=== PATIENT | female | born 2000 | race Caucasian/White ===

== ENCOUNTER 2018-07-18 15:55 | Emergency (ER) | payer BC ==
[2018-07-18 16:33] VITALS: BP 124/67
[2018-07-18] MEDS ORDERED: Ibuprofen TAB* 400 MG PO ONE (17:01)
--- NOTE | 2018-07-18 17:01 | UC ---
Hand/Wrist HPI - HPI Summary HPI Summary: Pt c/o left thumb swelling, pain and bruising. Pt was under the influence of ETOH last evening and remembers slipping on stairs and falling. Pt denies LOC and is unsure of mechanism of injury . Woke this morning with base of left thumb swollen, tender and bruised. - History Of Current Complaint Chief Complaint: UCLowerExtremity Stated Complaint: LEFT THUMB CONCERN Time Seen by Provider: 07/18/18 16:57 Hx Obtained From: Patient Hx Last Menstrual Period: 07/14/18 ?: No Onset/Duration: Gradual Onset, Lasting Hours Severity Initially: Mild Severity Currently: Severe Pain Intensity: 9 Character Of Pain: Dull, Aching, Stiffness Aggravating Factor(s): Movement Alleviating Factor(s): Rest Associated Signs And Symptoms: Positive: Swelling, Bruising Related History: Dominant Hand Right - Risk Factors Compartment Syndrome Risk Factors: Pain - Allergies/Home Medications Allergies/Adverse Reactions: Allergies Allergy/AdvReac Type Severity Reaction Status Date / Time azithromycin Allergy Hives Verified 07/18/18 16:33 Home Medications: Home Medications Norgestimate-Ethinyl Estradiol [Curry-Linyah 28 Tablet] 1 each PO DAILY 07/18/18 [History Confirmed 07/18/18] PMH/Surg Hx/FS Hx/Imm Hx Previously Healthy: Yes - Surgical History Surgical History: Yes Surgery Procedure, Year, and Place: Adnoids age 2. tubes - Family History Known Family History: Positive: Cardiac Disease - Social History Occupation: Student Lives: With Family Alcohol Use: Weekly Substance Use Type: None Smoking Status (MU): Never Smoked Tobacco Have You Smoked in the Last Year: No - Immunization History Vaccination Up to Date: Yes Review of Systems All Other Systems Reviewed And Are Negative: Yes Constitutional: Positive: Negative Skin: Positive: Bruising - base of left thumb Eyes: Positive: Negative ENT: Positive: Negative Respiratory: Positive: Negative Cardiovascular: Positive: Negative Gastrointestinal: Positive: Negative Genitourinary: Positive: Negative Motor: Positive: Negative - base of left thumb, Decreased ROM Neurovascular: Positive: Negative Musculoskeletal: Positive: Arthralgia, Decreased ROM, Edema, Myalgia Neurological: Positive: Negative Psychological: Positive: Negative Is Patient Immunocompromised?: No Physical Exam Triage Information Reviewed: Yes Appearance: Well-Appearing Vital Signs: Initial Vital Signs Temp 98.0 F 07/18/18 16:29 Pulse 86 07/18/18 16:29 Resp 15 07/18/18 16:29 BP 124/67 07/18/18 16:29 Pulse Ox 99 07/18/18 16:29 Vital Signs Reviewed: Yes Eye Exam: Normal ENT Exam: Normal Dental Exam: Normal Neck exam: Normal Respiratory: Positive: No respiratory distress Musculoskeletal: Positive: ROM Limited @ - base of left thumb, Edema @ - base of left thumb Neurological Exam: Normal Psychological Exam: Normal Skin Exam: Other - bruising at base of left thumb Diagnostics - Radiology No standard instances Radiology Interpretation Completed By: Radiologist - IMPRESSION: No acute fracture or dislocation. Hand/Wrist Course/Dx - Differential Dx/Diagnosis Differential Diagnosis/HQI/PQRI: Contusion, Sprain, Strain Provider Diagnosis: Strain of left thumb Discharge - Sign-Out/Discharge Documenting (check all that apply): Patient Departure All imaging exams completed and their final reports reviewed: No Studies - Discharge Plan Condition: Stable Disposition: HOME Patient Education Materials: Finger Sprain (ED), Ice Pack Application (ED), Safe Use of NSAIDs (ED) Referrals: Pasha Giron MD [Medical Doctor] - If Needed No Primary Care Phys,NOPCP [Primary Care Provider] - - Billing Disposition and Condition Condition: STABLE Disposition: Home - Attestation Statements Provider Attestation: Per institutional requirements, I have reviewed the chart, however, I was not consulted specifically or made aware of this patient by the midlevel provider. I did not personally evaluate, interact with , or disposition this patient.
== END 2018-07-18 17:57 | disposition home or self-care (01) ==
LOC: UCCORT 15:55
DX: S63.602A Unspecified sprain of left thumb, initial encounter (principal); S60.012A Contusion of left thumb without damage to nail, initial encounter; Z88.1 Allergy status to other antibiotic agents; W10.9XXA Fall (on) (from) unspecified stairs and steps, initial encounter; Y92.9 Unspecified place or not applicable
CPT/HCPCS: 99202; A9270-GY; G0463